=== PATIENT | female | born 1995 | race American Indian/Alaskan Native ===

== ENCOUNTER 2017-05-31 16:31 | Emergency (ER) | payer BC, MEDICAID, OTHER ==
[2017-05-31 16:31] VITALS: BMI 27.9
[2017-05-31 16:55] VITALS: RESP 14; TEMP 98.5; O2SAT 100
--- NOTE | 2017-05-31 16:57 | ED PDOC ---
Arrival/HPI - General Chief Complaint: Chest Pain Time Seen by Provider: 05/31/17 16:38 Historian: Patient - Critical Care Narrative Critical Care (Text): 05/31/17 16:59 Pt is a 21 yr old female who presents to the ED c/o sharp, right sided chest pain since 11 AM today. Pt states that she has been getting this chest pain on and off for 1.5 - 2 yrs, but normally goes away after a while (this time it is not going away). The pain is worse if she eats or drinks. No alleviating factors. No radiation of the pain. Pt did not take any medication for her symptoms. No SOB. Pt is not on oral control pills. No calf/leg pain. Pt states that the pain is a "10" on a 1-10 scale (but seems very comfortable in the ED stretcher). Pt states that the pain is still present now. Pt has not seen a doctor for these symptoms. No additional complaints at this time. Pt states that she's not (has not had sex in a long time). PMD: None Past Medical History - Provider Review Nursing Documentation Reviewed: Yes - Past History Past History: No Previous - Infectious Disease Hx of Infectious Diseases: None - Tetanus Immunization Tetanus Immunization: Unknown - Past Medical History Past Medical History: No Previous - Psychiatric Hx Depression: No Hx Emotional Abuse: No Hx Physical Abuse: No Hx Substance Use: No - Past Surgical History Past Surgical History: No Previous - Anesthesia Hx Anesthesia: No Hx Anesthesia Reactions: No Hx Malignant Hyperthermia: No - Suicidal Assessment Feels Threatened In Home Enviroment: No Family/Social History - Physician Review Nursing Documentation Reviewed: Yes Family/Social History: No Known Family HX Smoking Status: Light Smoker < 10 Cigarettes Daily Hx Alcohol Use: Yes Frequency of alcohol use: Socially Hx Substance Use: No Hx Substance Use Treatment: No Allergies/Home Meds Allergies/Adverse Reactions: Allergies No Known Allergies Allergy (Verified 05/24/15 16:32) Review of Systems - Physician Review All systems were reviewed & negative as marked: Yes - Review of Systems Constitutional: absent: Fatigue Cardiovascular: Chest Pain Gastrointestinal: absent: Abdominal Pain, Vomiting Musculoskeletal: absent: Back Pain Neurological: absent: Headache Physical Exam Vital Signs Reviewed: Yes Vital Signs Temp Pulse Resp BP Pulse Ox 05/31/17 16:43 98.5 F 83 14 112/66 100 Temperature: Afebrile Blood Pressure: Normal Pulse: Regular Respiratory Rate: Normal Appearance: Positive for: Well-Appearing, Non-Toxic, Comfortable Pain Distress: Other (appears comfortable but states her pain is a "10") Mental Status: Positive for: Alert and Oriented X 3 - Systems Exam Head: Present: Atraumatic, Normocephalic Pupils: Present: PERRL Extroacular Muscles: Present: EOMI Conjunctiva: Present: Normal Ears: Present: Normal Mouth: Present: Moist Mucous Membranes Pharnyx: Present: Normal Nose (External): Present: Atraumatic Neck: Present: Normal Range of Motion Respiratory/Chest: Present: Clear to Auscultation, Good Air Exchange. No: Respiratory Distress, Accessory Muscle Use Cardiovascular: Present: Regular Rate and Rhythm, Normal S1, S2. No: Murmurs Abdomen: Present: Normal Bowel Sounds. No: Tenderness, Distention, Peritoneal Signs Back: Present: Normal Inspection Upper Extremity: Present: Normal Inspection. No: Edema Lower Extremity: Present: Normal Inspection. No: Edema, CALF TENDERNESS Neurological: Present: Speech Normal, Motor Func Grossly Intact, Normal Sensory Function Skin: Present: Warm, Dry, Normal Color. No: Rashes Psychiatric: Present: Alert, Oriented x 3 Medical Decision Making ED Course and Treatment: 05/31/17 17:06 Initial Impression: Nonspecific chest pain Differential diagnosis includes but is not limited to: musculoskeletal pain, esophageal or hiatal hernia issue, low suspicion for cardiac (EKG is normal), pneumothorax Initial Plan: EKG has been completed Will get CXR Give medication. 05/31/17 18:25 Pt feels better. Will d/c home. - RAD Interpretation Radiology Orders: 05/31/17 16:56 CHEST TWO VIEWS (PA/LAT) [RAD] Stat - EKG Interpretation EKG Interpretation (Text): 05/31/17 17:21 NSR at 82 bpm, sinus arrhythmia, no ST elevation - Medication Orders Current Medication Orders: Discontinued Medications Famotidine (Pepcid) 20 mg PO STAT STA Stop: 05/31/17 16:55 Last Admin: 05/31/17 17:24 Dose: 20 mg Ibuprofen (Motrin Tab) 400 mg PO STAT STA Stop: 05/31/17 16:55 Last Admin: 05/31/17 17:24 Dose: 400 mg Sucralfate (Carafate Oral Susp) 1 gm PO STAT STA Stop: 05/31/17 18:00 Last Admin: 05/31/17 18:08 Dose: 1 gm Disposition/Present on Arrival - Present on Arrival Any Indicators Present on Arrival: No History of DVT/PE: No History of Uncontrolled Diabetes: No Urinary Catheter: No History of Decub. Ulcer: No History Surgical Site Infection Following: None - Disposition Have Diagnosis and Disposition been Completed?: Yes Diagnosis: Chest pain Disposition: HOME/ ROUTINE Disposition Time: 18:26 Patient Plan: Discharge Condition: IMPROVED Discharge Instructions (ExitCare): Chest Pain (ED) Print Language: IRISH Additional Instructions: Ms. Olmstead, thank you for letting us take care of you today. Return to the ER if your symptoms worsen, or if any problems. Take the medication listed below as prescribed. You need to follow up at our [facility] so you can be re- evaluated. Call the phone number listed below to make an appointment at our [facility]. Prescriptions: Ranitidine HCl [Zantac] 1 tab PO BID #30 tablet Referrals: [facility] [place] [Outside] - Follow up with primary Forms: [employer] (Kiswahili)
[2017-05-31] MEDS ORDERED: Sucralfate 1 gm/10 ml Oral Susp UD PO STA (17:59)
[2017-05-31 18:34] VITALS: BP 109/67; PULSE 65
--- NOTE | 2017-06-01 08:22 | RAD ---
HISTORY: c/o right side chest pain COMPARISON: 04/19/2015 TECHNIQUE: Chest PA and lateral FINDINGS: LUNGS: No active pulmonary disease. Bilateral hyperaeration - probably due to deep inspiration PLEURA: No significant pleural effusion identified. No pneumothorax apparent. CARDIOVASCULAR: Normal. OSSEOUS STRUCTURES: No significant abnormalities. VISUALIZED UPPER ABDOMEN: Normal. OTHER FINDINGS: None. IMPRESSION: No active disease. No interval pathology seen
--- NOTE | 2017-06-01 16:44 | CARD ---
APPROVED REPORT EKG Measurement Heart [id number] <Conclusion> Normal sinus rhythm with sinus arrhythmia Normal ECG
== END 2017-05-31 18:39 | disposition home or self-care (01) ==
LOC: ED 16:31
DX: R07.9 Chest pain, unspecified (principal)

== ENCOUNTER 2017-12-18 21:30 | Emergency (ER) | payer BC, MEDICAID, OTHER ==
[2017-12-18 21:31] VITALS: BMI 27.9
--- NOTE | 2017-12-18 21:48 | ED PDOC ---
Arrival/HPI - General Historian: Patient <Pernell Diaz - Last Filed: 12/18/17 21:48> <Nick Prater - Last Filed: 12/18/17 21:58> - General Time Seen by Provider: 12/18/17 21:48 - History of Present Illness Narrative History of Present Illness (Text): 12/18/17 21:48 22 y/o female, pmh including herpes labialis, nkda, c/o (Pernell Diaz) Past Medical History - Past History Past History: No Previous - Infectious Disease Hx of Infectious Diseases: None - Tetanus Immunization Tetanus Immunization: Unknown - Past Medical History Past Medical History: No Previous - Psychiatric Hx Substance Use: No - Past Surgical History Past Surgical History: No Previous - Anesthesia Hx Anesthesia: No Hx Anesthesia Reactions: No Hx Malignant Hyperthermia: No - Suicidal Assessment Feels Threatened In Home Enviroment: No <Pernell Diaz - Last Filed: 12/18/17 21:48> Family/Social History Smoking Status: Light Smoker < 10 Cigarettes Daily Hx Alcohol Use: Yes Hx Substance Use: No Hx Substance Use Treatment: No <Pernell Diaz - Last Filed: 12/18/17 21:48> Allergies/Home Meds <Pernell Diaz - Last Filed: 12/18/17 21:48> <Nick Prater - Last Filed: 12/18/17 21:58> Allergies/Adverse Reactions: Allergies No Known Allergies Allergy (Verified 06/29/17 22:19) - 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 <Nick Prater - Last Filed: 12/18/17 21:58> Disposition/Present on Arrival - Present on Arrival History of DVT/PE: No History of Uncontrolled Diabetes: No Urinary Catheter: No History Surgical Site Infection Following: None <Pernell Diaz - Last Filed: 12/18/17 21:48>
--- NOTE | 2017-12-18 22:07 | ED PDOC ---
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 PMHx: unremarkable Time/Duration: < week (3 days) Symptom Onset: Sudden Symptom Course: Worsening Quality: Cramping Severity Level: 7 Activities at Onset: Rest Context: Home Past Medical History - Provider Review Nursing Documentation Reviewed: Yes - Travel History Have you recently traveled outside [place] w/in the past 3 mons?: No - Past History Past History: No Previous - Infectious Disease Hx of Infectious Diseases: None - Tetanus Immunization Tetanus Immunization: Unknown - Past Medical History Past Medical History: No Previous - Psychiatric Hx Substance Use: No - Past Surgical History Past Surgical History: No Previous - Anesthesia Hx Anesthesia: No Hx Anesthesia Reactions: No Hx Malignant Hyperthermia: No - Suicidal Assessment Feels Threatened In Home Enviroment: No Family/Social History - Physician Review Nursing Documentation Reviewed: Yes Family/Social History: No Known Family HX Smoking Status: Light Smoker < 10 Cigarettes Daily Hx Alcohol Use: Yes Hx Substance Use: No Hx Substance Use Treatment: No Allergies/Home Meds Allergies/Adverse Reactions: Allergies No Known Allergies Allergy (Verified 06/29/17 22:19) Review of Systems - Review of Systems Constitutional: Fatigue. absent: Fevers Eyes: Normal ENT: Sore Throat Respiratory: Normal Cardiovascular: Normal Gastrointestinal: Normal Genitourinary Female: Normal Musculoskeletal: Normal Skin: Normal Neurological: Normal Endocrine: Normal Hemo/Lymphatic: Normal Physical Exam Vital Signs Reviewed: Yes Vital Signs Temp Pulse Resp BP Pulse Ox 12/18/17 23:55 97 H 16 110/75 98 12/18/17 22:11 98.8 F 89 18 116/69 99 Temperature: Afebrile Blood Pressure: Normal Pulse: Regular Respiratory Rate: Normal Appearance: Positive for: Well-Appearing, Non-Toxic, Other (mildly uncomfortable , NAD, sitting in bed, cooperative, follows command with ease) Pain Distress: None Mental Status: Positive for: Alert and Oriented X 3 - Systems Exam Head: Present: Atraumatic, Normocephalic Pupils: Present: PERRL Extroacular Muscles: Present: EOMI Conjunctiva: Present: Normal Ears: Present: Normal Mouth: Present: Moist Mucous Membranes, Other (intact dentitions, no drooling/ stridor, uvula/tongue are midline, no dysphonia) Pharnyx: Present: Normal, Other (mild posterior pharyngeal erythema, no exudates /lesions noted, no dysphonia noted) Nose (External): Present: Atraumatic Nose (Internal): Present: Normal Inspection Neck: Present: Normal Range of Motion, Trachea Midline. No: MIDLINE TENDERNESS Respiratory/Chest: Present: Clear to Auscultation, Good Air Exchange. No: Respiratory Distress Cardiovascular: Present: Regular Rate and Rhythm, Normal S1, S2. No: Murmurs Abdomen: Present: Normal Bowel Sounds, Other (well nourished female, no focal tenderness, no masses/rebound/guarding/rigidity) Back: Present: Normal Inspection. No: Midline Tenderness Upper Extremity: Present: Normal Inspection, Normal ROM, NORMAL PULSES, Neurovascularly Intact, Capillary Refill < 2s Lower Extremity: Present: Normal Inspection, NORMAL PULSES, Normal ROM, Neurovascularly Intact, Capillary Refill < 2 s Neurological: Present: GCS=15, CN II-XII Intact, Speech Normal Skin: Present: Warm, Normal Color Psychiatric: Present: Alert, Oriented x 3 Medical Decision Making ED Course and Treatment: 12/18/17 22:06 Impression: sore throat x 3 days, viral vs bacterial i have consider all the differential diagnosis regarding pt's chief medical complaints/clinical findings, including but are not limited to: sore throat A/P: sore throat - rapid strept - ucg - observe - supportive care 12/18/17 23:47 pt is feeling some improvement pt is made aware of her medical results pt is encouraged fluid hydration pt will f/u as directed pt will be discharged home Re-evaluation Time: 23:47 Reassessment Condition: Improving,but remains with symptoms - Lab Interpretations Lab Results: Lab Results 12/18/17 22:35: Grp A Beta Strep Ag Negative I have reviewed the lab results: Yes Interpretation: All labs normal - Medication Orders Current Medication Orders: Discontinued Medications Ibuprofen (Motrin Tab) 600 mg PO STAT STA Stop: 12/18/17 22:13 Last Admin: 12/18/17 22:37 Dose: 600 mg Lidocaine HCl (Lidocaine 2% Viscous) 15 ml MM STAT STA Stop: 12/18/17 22:13 Last Admin: 12/18/17 22:37 Dose: 15 ml Disposition/Present on Arrival - Present on Arrival Any Indicators Present on Arrival: No History of DVT/PE: No History of Uncontrolled Diabetes: No Urinary Catheter: No History of Decub. Ulcer: No History Surgical Site Infection Following: None - Disposition Have Diagnosis and Disposition been Completed?: Yes Diagnosis: Viral syndrome, Pharyngitis Disposition: HOME/ ROUTINE Disposition Time: 23:43 Patient Plan: Discharge Patient Problems: Current Active Problems Problem Status Onset Pharyngitis Acute Viral syndrome Acute Condition: STABLE Discharge Instructions (ExitCare): Dehydration (ED), Viral Syndrome (ED) Print Language: QATARI Additional Instructions: Make sure to see your doctor in 1-2 days DRINK PLENTY OF FLUIDS take your medications as prescribed DONT SMOKE if you smoke RETURN TO ED IF worse pain, cant breath, persistent vomiting, high fever >101- 102 for hours, altered behavior, unable to urinate, heavy/persistent bleeding, passing out, chest pain, or other medical emergencies Prescriptions: Ibuprofen [Motrin] 600 mg PO TID PRN #30 tab PRN Reason: Pain, Mild (1-3) Lidocaine 2% Viscous 15 ml MM QID PRN #1 bottle PRN Reason: Pain, Mild (1-3) Referrals: Priscila Barry MD [Staff Provider] - Follow up with primary Forms: [employer] (Kyrgyz), WORK NOTE
[2017-12-18 22:11] VITALS: TEMP 98.8
[2017-12-18 23:56] VITALS: BP 110/75; PULSE 97; RESP 16; O2SAT 98
== END 2017-12-19 00:06 | disposition home or self-care (01) ==
LOC: ED 21:30
DX: J02.9 Acute pharyngitis, unspecified (principal); B34.9 Viral infection, unspecified; F17.210 Nicotine dependence, cigarettes, uncomplicated

== ENCOUNTER 2018-03-02 19:39 | Emergency (ER) | payer MEDICAID ==
[2018-03-02 19:49] VITALS: BMI 19.5
[2018-03-02 19:53] VITALS: PULSE 88; O2SAT 99
--- NOTE | 2018-03-02 20:25 | ED PDOC ---
Arrival/HPI - General Chief Complaint: Cough, Cold, Congestion Time Seen by Provider: 03/02/18 20:00 Historian: Patient - History of Present Illness Narrative History of Present Illness (Text): 03/02/18 20:05 A 22 year old female, with no significant past medical history, presents to the emergency department complaining of cold-like symptoms. Patient reports experiencing nasal congestion, rhinorrhea, dry cough, and occasional body aches. Patient denies any fever, chest pain, shortness of breath, nausea, vomiting, diarrhea, or any other complaints at this time. PMD: Dr. Rufina Cuevas Past Medical History - Provider Review Nursing Documentation Reviewed: Yes - Past History Past History: No Previous - Infectious Disease Hx of Infectious Diseases: None - Tetanus Immunization Tetanus Immunization: Unknown - Past Medical History Past Medical History: No Previous - Cardiac Hx Cardiac Disorders: No - Pulmonary Hx Respiratory Disorders: No - Neurological Hx Neurological Disorder: No - HEENT Hx HEENT Disorder: No - Renal Hx Renal Disorder: No - Endocrine/Metabolic Hx Endocrine Disorders: No - Hematological/Oncological Hx Blood Disorders: No - Integumentary Hx Dermatological Disorder: No - Musculoskeletal/Rheumatological Hx Musculoskeletal Disorders: No - Gastrointestinal Hx Gastrointestinal Disorders: No - Genitourinary/Gynecological Hx Genitourinary Disorders: No - Psychiatric Hx Depression: No Hx Substance Use: No - Past Surgical History Past Surgical History: No Previous - Anesthesia Hx Anesthesia: No Hx Anesthesia Reactions: No Hx Malignant Hyperthermia: No - Suicidal Assessment Feels Threatened In Home Enviroment: No Family/Social History - Physician Review Nursing Documentation Reviewed: Yes Family/Social History: No Known Family HX Smoking Status: Light Smoker < 10 Cigarettes Daily Hx Alcohol Use: Yes Hx Substance Use: No Hx Substance Use Treatment: No Allergies/Home Meds Allergies/Adverse Reactions: Allergies No Known Allergies Allergy (Verified 03/02/18 19:49) Review of Systems - Physician Review All systems were reviewed & negative as marked: Yes - Review of Systems Constitutional: absent: Fevers ENT: Rhinorrhea, Other (nasal congestion) Respiratory: Cough (dry). absent: SOB Cardiovascular: absent: Chest Pain Gastrointestinal: absent: Diarrhea, Nausea, Vomiting Musculoskeletal: Myalgias Physical Exam Vital Signs Reviewed: Yes Vital Signs Temp Pulse Resp BP Pulse Ox 03/02/18 19:50 99.6 F 88 17 102/68 99 Temperature: Afebrile Blood Pressure: Normal Pulse: Regular Respiratory Rate: Normal Appearance: Positive for: Well-Appearing, Non-Toxic, Comfortable Pain Distress: None Mental Status: Positive for: Alert and Oriented X 3 - Systems Exam Pupils: Present: PERRL Extroacular Muscles: Present: EOMI Ears: Present: Normal, NORMAL TM (TM intact bilaterally) Mouth: Present: Moist Mucous Membranes Nose (Internal): Present: Rhinorrhea, Other (positive nasal congestion) Neck: Present: Normal Range of Motion. No: Meningeal Signs Respiratory/Chest: Present: Clear to Auscultation, Good Air Exchange. No: Respiratory Distress, Accessory Muscle Use Cardiovascular: Present: Regular Rate and Rhythm, Normal S1, S2. No: Murmurs Abdomen: No: Tenderness, Distention, Peritoneal Signs Upper Extremity: Present: Normal Inspection. No: Cyanosis, Edema Lower Extremity: Present: Normal Inspection. No: Edema Neurological: Present: GCS=15, CN II-XII Intact, Speech Normal, Motor Func Grossly Intact, Normal Sensory Function, Other (no focal deficits) Skin: Present: Warm, Dry, Normal Color. No: Rashes Psychiatric: Present: Alert, Oriented x 3, Normal Insight, Normal Concentration Medical Decision Making ED Course and Treatment: 03/02/18 20:07 Impression: 22 year old female with cold-like symptoms. Physical exam shows positive nasal congestion and rhinorrhea; neck supple, no meningeal signs; rest of examination is normal. Plan: -- Rapid Flu Test -- Reassess and disposition Progress Notes: - Lab Interpretations Lab Results: Lab Results 03/02/18 20:51: Influenza Typ A,B (EIA) Negative for flu a/b - Scribe Statement The provider has reviewed the documentation as recorded by the Noemí Fisher Provider Scribe Attestation: All medical record entries made by the Noemí were at my direction and personally dictated by me. I have reviewed the chart and agree that the record accurately reflects my personal performance of the history, physical exam, medical decision making, and the department course for this patient. I have also personally directed, reviewed, and agree with the discharge instructions and disposition. Disposition/Present on Arrival - Present on Arrival Any Indicators Present on Arrival: No History of DVT/PE: No History of Uncontrolled Diabetes: No Urinary Catheter: No History of Decub. Ulcer: No History Surgical Site Infection Following: None - Disposition Have Diagnosis and Disposition been Completed?: Yes Diagnosis: Bronchitis, URI (upper respiratory infection) Disposition: HOME/ ROUTINE Disposition Time: 22:39 Patient Plan: Discharge Patient Problems: Current Active Problems Problem Status Onset Bronchitis Acute URI (upper respiratory infection) Acute Condition: GOOD Discharge Instructions (ExitCare): Acute Bronchitis, Adult (DC), Viral Upper Respiratory Infection, Adult (DC) Additional Instructions: Drink plenty of liquids/take meds as prescribed/follow up with your doctor this week Prescriptions: Fexofenadine/Pseudoephedrine [Cookie-D 12 Hour Tablet] 1 each PO BID PRN #24 tab.er.12h PRN Reason: Nasal Congestion Azithromycin [Zithromax] 250 mg PO DAILY #6 tab Referrals: Rufina Lane NP [Primary Care Provider] - Follow up with primary Forms: [employer] (Arabic), SCHOOL NOTE, WORK NOTE
[2018-03-02 22:47] VITALS: BP 110/72; RESP 16; TEMP 99.1
== END 2018-03-02 22:46 | disposition home or self-care (01) ==
LOC: ED 19:39
DX: J06.9 Acute upper respiratory infection, unspecified (principal); J40 Bronchitis, not specified as acute or chronic; F17.210 Nicotine dependence, cigarettes, uncomplicated